=== PATIENT | female | born 1990 | race African-American/Black ===

== ENCOUNTER 2018-07-07 12:55 | Emergency (ER) | payer SELFPAY ==
[2018-07-07] MEDS ORDERED: Ketorolac Tromethamine 30 MG/ML VIAL ONE (13:36)
--- NOTE | 2018-07-07 13:40 | RAD ---
TWO VIEWS CHEST: Comparison: 08-17-13 History: Intermittent chest pain for two days. FINDINGS: Two views of the chest show normal sized cardiomediastinal silhouette. There is no evidence of consol idation, mass, or pleural effusion. The bones are unremarkable. IMPRESSION: No evidence of acute cardiopulmonary disease. POS: [facility]
== END 2018-07-07 14:07 | disposition home or self-care (01) ==
LOC: ERS 12:55
DX: J06.9 Acute upper respiratory infection, unspecified (principal); R07.81 Pleurodynia; F17.210 Nicotine dependence, cigarettes, uncomplicated
CPT/HCPCS: 71046; 96372; J1885

== ENCOUNTER 2019-05-11 18:16 | Emergency (ER) | payer SELFPAY | END 2019-05-11 20:26 | disposition left against medical advice (07) | LOC: ERS 18:16 | DX: Z53.21 Procedure and treatment not carried out due to patient leaving prior to being seen by health care provider (principal) ==

== ENCOUNTER 2019-07-12 19:03 | Inpatient (IN) | payer SELFPAY ==
[~2019-07-12 19:03] MED LIST: Iopamidol-370 76% 500 ML 1 ML ONE
[2019-07-12] MEDS ORDERED: Morphine 4 MG/ML VIAL ONE (19:55)
[2019-07-12] MEDS ORDERED: Ondansetron PF 4 MG/2 ML Vial ONE (19:55)
[2019-07-12 19:58] LABS: Hemoglobin 12.9 g/dL (12.0-16.0); Mean Corpuscular HGB CONC 33.8 g/dL (32.0-36.0); Mean Corpuscular Hemoglobin 31.6 pg (27.0-31.0); Mean Corpuscular Volume 93.3 fL (78.0-98.0); Platelet Count 240 thou/uL (130-400); RBC Distribution Width 12.2 % (11.5-14.5); Red Blood Cell (RBC) Count 4.09 mill/uL (4.20-5.40); White Blood Cell (WBC) Count 11.4 thou/uL (4.8-10.8)
[2019-07-12 20:02] LABS: BHCG - Serum Negative (NEGATIVE); Pregs Control Background? CLEAR/WHITE (CLR/WHITE); Pregs Control Bar Appear? YES (CONTROL BAR)
[2019-07-12 20:18] LABS: Bacteria/HPF 3+ HPF (None Seen); Bilirubin Negative (Negative); Blood, Urine Negative (Negative); Clarity Clear (Clear); Glucose, Urine (Dipstick) Normal (Negative); Leukocyte Negative Leu/uL (Negative); Nitrite 1+ (Negative); Protein, Urine (Dipstick) Negative (Neg-Trace); RBC/HPF 0-3 HPF (0-3); Urobilinogen Normal mg/dL (Less than 2)
[2019-07-12 20:21] LABS: Band 24 % (5-11); Lymphocytes 10 % (21-51); MDiff Complete? YES; Monocytes 9 % (0-10); Neutrophil 55 % (42-75); Platelet Morphology Comment Appears Adequate; Polychromasia SLIGHT = 2-3 cells (100X) (0-2/hpf); Reactive Lymphocytes 2 % (0-10)
[2019-07-12 20:24] LABS: ALT (SGPT) 7 U/L (8-55); AST (SGOT) 12 U/L (5-34); Albumin 3.9 g/dL (3.5-5.0); Alkaline Phosphatase 64 U/L (40-110); Anion Gap 12 mmol/L (10-20); BUN (Urea Nitrogen) 8 mg/dL (7.0-18.7); Bilirubin, Total 0.3 mg/dL (0.2-1.2); Calc. Creatinine Clearance 0 mL/min (70-130); Calcium 8.7 mg/dL (7.8-10.44); Carbon Dioxide 23 mmol/L (22-29); Chloride 101 mmol/L (98-107); Estimated GFR-MDRD Greater than 90; Globulin 3.5 g/dL (2.4-3.5); Glucose 137 mg/dL (70-105); Lipase 8 U/L (8-78); Protein, Total 7.4 g/dL (6.0-8.3); Sodium 133 mmol/L (136-145)
[2019-07-12] MEDS ORDERED: metroNIDAZOLE 500 MG/100 ML BAG ONE (21:16)
--- NOTE | 2019-07-12 21:16 | PDOC.FPRHP ---
- History of Present Illness Chief Complaint: abdominal pain History of Present Illness: 29yo AAF with no previous medical history presents for 2 days of sharp/stabbing abdominal pain both RLQ and LLQ but worse on the right, rated 10/10. Has been having 6-7 episodes per day of non-bloody diarrhea during that time as well. No recent antibiotics, recent travel, eating of abnormal food. Prior to 2 days ago she was at her usual state of health. Subjective fever yesterday. Decreased PO intake 2/2 pain and nausea. Tried Tylenol with no relief of sxs. Endorses RINALDI and body aches and generalized fatigue. No history of STDs, no dysuria, vaginal discharge, vaginal bleeding. No known sick contacts. ED Course: 1L NS, cipro, flaggyl, morphine, zofran - Allergies/Adverse Reactions Allergies Allergy/AdvReac Type Severity Reaction Status Date / Time No Known Allergies Allergy Unverified 07/12/19 21:20 - Home Medications Medication Instructions Recorded Confirmed Type No Known 07/12/19 07/12/19 History - History OB: , ectopic in 2012 requiring removal of one fallopian tube but unsure which, test negative today [employer]: denies STIs, LMP 07/04/19 regular menses PMH: none PSH: ectopic preg 2013 Med: none Allergy: NKDA Fm Hx: non-contributory Soc: social drinker, 1/2 ppd for 10 years, denies drugs. Lives in [place] - Review of Systems General: reports: fever/chills, weight/appetite/sleep changes (decreased), fatigue Eyes: denies: vision changes ENT: denies: nasal congestion, rhinorrhea Respiratory: denies: cough, congestion, shortness of breath Cardiovascular: denies: chest pain, palpitation Gastrointestinal: reports: nausea, vomiting, diarrhea, abdominal pain. denies: GI bleeding Genitourinary: denies: dysuria Skin: denies: rashes, itching Musculoskeletal: denies: pain, tenderness Neurological: reports: other (headache). denies: numbness - Vital signs BP: 118/90 HR: 85 RR: 18 Tmax: 99.8 Pox: 99on RA Wt: 57.1kg - Physical Exam Constitutional: awake, alert and oriented, well developed, other (NAD when resting, becomes tearful and in pain when moving.) HEENT: PERRLA, EOMI, other (dry MM) Neck: supple, trachea midline Heart: RRR, normal S1/S2, no murmurs/rubs/gallops, pulses present, no edema Lungs: CTAB, no respiratory distress, good air movement, no rales/rhonchi, no wheezing Abdomen: soft, bowel sounds present, other (RLQ TTP, rebound tenderness, positive psoas and obturator sign, positive toribio's sign. Pain worse in RLQ but also present in RUL and LLQ. No guarding.) Musculoskeletal: normal structure, normal tone Neurological: no focal deficit Skin: no rash/lesions Heme/Lymphatic: no unusual bruising or bleeding Psychiatric: normal mood and affect, good judgment and insight, intact recent and remote memory FMR H&P: Results - Labs Result Diagrams: 07/12/19 19:48 07/12/19 19:48 Lab results: WBC 11.4 thou/uL (4.8-10.8) H 07/12/19 19:48 Hgb 12.9 g/dL (12.0-16.0) 07/12/19 19:48 Hct 38.2 % (36.0-47.0) 07/12/19 19:48 MCV 93.3 fL (78.0-98.0) 07/12/19 19:48 Plt Count 240 thou/uL (130-400) 07/12/19 19:48 Band Neuts % (Manual) 24 % (5-11) H 07/12/19 19:48 Sodium 133 mmol/L (136-145) L 07/12/19 19:48 Potassium 3.0 mmol/L (3.5-5.1) L 07/12/19 19:48 Chloride 101 mmol/L (98-107) 07/12/19 19:48 Carbon Dioxide 23 mmol/L (22-29) 07/12/19 19:48 BUN 8 mg/dL (7.0-18.7) 07/12/19 19:48 Creatinine 0.83 mg/dL (0.6-1.1) 07/12/19 19:48 Glucose 137 mg/dL (70-105) H 07/12/19 19:48 Lactic Acid 1.7 mmol/L (0.5-2.2) 07/12/19 19:48 Calcium 8.7 mg/dL (7.8-10.44) 07/12/19 19:48 Total Bilirubin 0.3 mg/dL (0.2-1.2) 07/12/19 19:48 AST 12 U/L (5-34) 07/12/19 19:48 ALT 7 U/L (8-55) L 07/12/19 19:48 Alkaline Phosphatase 64 U/L (40-110) 07/12/19 19:48 Serum Total Protein 7.4 g/dL (6.0-8.3) 07/12/19 19:48 Albumin 3.9 g/dL (3.5-5.0) 07/12/19 19:48 Lipase 8 U/L (8-78) 07/12/19 19:48 Urine Ketones Negative mg/dL (Negative) 07/12/19 20:03 Urine Blood Negative (Negative) 07/12/19 20:03 Urine Nitrite 1+ (Negative) A 07/12/19 20:03 Ur Leukocyte Esterase Negative Arlyn/uL (Negative) 07/12/19 20:03 Urine RBC 0-3 HPF (0-3) 07/12/19 20:03 Urine WBC 4-6 HPF (0-3) A 07/12/19 20:03 Ur Squamous Epith Cells 4-6 HPF (0-3) A 07/12/19 20:03 Urine Bacteria 3+ HPF (None Seen) A 07/12/19 20:03 - Radiology Interpretation CT scan - abdomen Status: report reviewed by me (Cecal wall thickening and inflammation. No sign of appendicitis. Small amount of free fluid in pelvis.) FMR H&P: A/P - Problem List (1) Colitis Current Visit: Yes Status: Acute Code(s): K52.9 - NONINFECTIVE GASTROENTERITIS AND COLITIS, UNSPECIFIED - Plan 29yo AAF with no significant past PMHx presents for abd pain found to have suspected ascending colitis. #Suspected ascending colitis - sxs for 2 days of diffuse abd pain, worse in RLQ, fever, nausea, vomiting, diarrhea, and decreased PO intake - concern for appendicitis - Called and spoke with Radiologist, overread of CT confirmed normal appendix with inflammatory of R colon - Consult Dr. Thakur, Gen surg, rec IVF, NPO, and Zosyn, appre recs - Given flagy and cipro in ED, will d/c and start zosyn - WBC 11.4 with 24% bands. Will order procal. - UA dirty catch with 3+ bacteria, 4-6 WBC, 4-6 squamous, no sxs, zosyn will cover, await UCx - BCx pending - No previous STD, no current sxs, will order GC/C. LMP 2/, urine negative. H/o ectopic but low suspicion at this time of B[employer] [place]ILLER origin - flu negative, Lipase , Lacid acid 1.7 - morphine 4mg q4h prn pain, zofran prn n/v - diarrhea x3 day, >5 per day. Will order stool studies including cx, lactoferrin, and C. diff #Hypokalemia - 3.0, will replace, check Mg, and monitor Code: Full IVF: LR @125cc/hr Diet: NPO GI PPx: Pepcid VTE ppx: SCDs Disposition/LOS: Admit to surg floor for ascending colitis. Workup pending. Anticipate hospitalization >48hrs. FMR H&P: Upper Level - Plan Date/Time: 07/12/192115 PCP: CC HPI: This is a 29 yo F coming in with 2 days of worsening abdominal pain. She states she has had fever up to 102. She is having nausea and not tolerating PO intake. Pain is sharp, 10/10, comes and goes, worse with movt, both R and L lower quadrant. She does have a history ectopic . Denies vaginal bleeding or discharge. She has had 6-7 episodes of diarrhea per day, denies foods out of the usual as of late. REVIEW OF SYSTEMS: Gen: see hpi Neuro: denies headache Eyes: no visual changes ENT: no hearing changes, no sore throat, no congestion Resp: denies cough, SOB Card: denies CP, palpitations GI: see hpi Skin: no rash, no erythema PHYSICAL EXAMINATION: General: NAD, alert and oriented x3 HEENT: PERRLA, EOMI, normal sclera, oropharynx without erythema or exudate Neck: Supple. Full ROM. Heart/Cardiovascular System: RRR, Cap refill < 3 seconds, no rub, no murmur Lungs/Respiratory System: CTA-B, no resp distress Abdomen/Gastro-Intestinal System: soft, not distended, psoas/obturator sign positive, bowel sounds positive Extremities: Warm extremities. No cyanosis or edema Neuro: No gross deficits appreciated. CN 2-12 grossly intact Psychiatry: Awake, Alert and cooperative with exam Skin: no rashes, ulcers Musculoskeletal: Full ROM A/P: # Ascending Colitis, consider appendicitis - Reviewed CT with radiology, no sign of appendicitis on CT - Consulted gen surg, appreciate recs - Zosyn, pain/nausea control, fluids # Asymptomatic UTI - Ucx Fluids: LR 125ml/hr Code status: full PPx: scd Dispo: inpatient
[2019-07-12] MEDS ORDERED: Potassium Chloride 20 MEQ TAB ONE (21:34)
[2019-07-12 22:11] VITALS: BMI 24.6
[2019-07-12] MEDS ORDERED: Ondansetron ODT 4 MG TAB SL PRN (22:38)
[2019-07-12] MEDS ORDERED: Ondansetron PF 4 MG/2 ML Vial IVP PRN (22:38)
--- NOTE | 2019-07-12 22:43 | CT ---
CT ABDOMEN AND PELVIS WITH IV CONTRAST: History: Right lower quadrant abdominal pain. FINDINGS: Comparison is made with exam of 06-03-2013. The liver, spleen, pancreas, adrenal glands and kidneys are normal. No gallstones are seen. No free air or lymphadenopathy is seen. There is a small amount of free fluid in the pelvis. The small bowel loops are not abnormally dilated. A normal appearing appendix is present. There is t hickening of the wall of the cecum. IMPRESSION: 1. Thickening of the wall of the cecum is nonspecific and may be due to inflammation, infection, infi ltrative disorders, neoplasia. 2. No evidence of appendicitis. 3. Small amount of free fluid in the pelvis. POS: [facility]
[2019-07-12] MEDS ORDERED: Sodium Chloride 0.9% 1,000 ML IV SCH (22:45)
[2019-07-13] MEDS ORDERED: Ondansetron PF 4 MG/2 ML Vial IVP PRN (00:11)
[2019-07-13] MEDS ORDERED: Ondansetron ODT 4 MG TAB PO PRN (00:11)
[2019-07-13] MEDS: Morphine 4 MG/ML VIAL SLOW IVP PRN ×6 (00:28→20:21)
[2019-07-13] MEDS: Lactated Ringer's 1,000 ML IV SCH ×5 (00:32→20:20)
[2019-07-13] MEDS: Acetaminophen 325 MG TAB PO PRN ×5 (00:45→20:32)
[2019-07-13] MEDS: Piperacillin/Tazobactam 3.375 GM in Sodium Chloride 0.9% 100 ML IVPB SCH ×4 (02:35→20:21)
[2019-07-13 05:31] LABS: Anion Gap 12 mmol/L (10-20); BUN (Urea Nitrogen) 5 mg/dL (7.0-18.7); Calc. Creatinine Clearance 96 mL/min (70-130); Calcium 8.3 mg/dL (7.8-10.44); Carbon Dioxide 21 mmol/L (22-29); Chloride 105 mmol/L (98-107); Estimated GFR-MDRD Greater than 90; Glucose 103 mg/dL (70-105); Potassium 3.5 mmol/L (3.5-5.1); Sodium 134 mmol/L (136-145)
[2019-07-13] MEDS ORDERED: metroNIDAZOLE 500 MG in Premix Bag 1 BAG IVPB SCH (06:00)
[2019-07-13 06:50] LABS: Hemoglobin 12.1 g/dL (12.0-16.0); Mean Corpuscular HGB CONC 34.5 g/dL (32.0-36.0); Mean Corpuscular Hemoglobin 32.3 pg (27.0-31.0); Mean Corpuscular Volume 93.6 fL (78.0-98.0); Mean Platelet Volume 8.6 fL (7.4-10.4); Platelet Count 213 thou/uL (130-400); RBC Distribution Width 12.1 % (11.5-14.5); Red Blood Cell (RBC) Count 3.75 mill/uL (4.20-5.40); White Blood Cell (WBC) Count 9.7 thou/uL (4.8-10.8)
--- NOTE | 2019-07-13 07:25 | PDOC.FM ---
- Subjective Subjective: pt in bed with a lot of pain in her abdomen, she reports nausea and fever as well - Objective Vital Signs & Weight: Vital Signs (12 hours) Temp Pulse Resp BP BP Pulse Ox 07/13/19 04:18 103.1 F H 80 16 109/69 94 L 07/13/19 00:34 100.5 F H 91 18 111/57 L 95 07/12/19 21:55 98.7 F 70 16 124/76 97 Weight Weight 57.153 kg I&O: 07/12/19 07/13/19 07/14/19 06:59 06:59 06:59 Intake Total 1000 Balance 1000 Result Diagrams: 07/13/19 04:58 07/13/19 04:58 Phys Exam - Physical Examination Constitutional: NAD HEENT: moist MMs Neck: no JVD Respiratory: clear to auscultation bilateral Cardiovascular: no significant murmur ttp throughout Musculoskeletal: pulses present Neurological: moves all 4 limbs Psychiatric: normal affect Dx/Plan (1) Colitis Code(s): K52.9 - NONINFECTIVE GASTROENTERITIS AND COLITIS, UNSPECIFIED Status : Acute - Plan Plan: Ascending Colitis, likely infectious - revealed on CT scan, wbc elevation and fever - Consulted gen surg, appreciate recs - consult GI, appreciate recs - work up for inflammatory processes - Zosyn, pain/nausea control, fluids Asymptomatic UTI - Ucx Code status: full Dispo: further eval and treatment today Addendum - Attending - Attending Attestation Date/Time: 07/13/19 9747 I personally evaluated the patient and discussed the management with Dr. Webb I agree with the History, Examination, Assessment and Plan documented above with any addition or exceptions noted below.Will consult GI consider IBD continue antibiotics hydration expectant management.
--- NOTE | 2019-07-13 07:37 | PDOC.EVN ---
Event Note - Event Note Event Note: Full dictation to follow A/P: Colitis -cont IVF, antibiotics -await stool studies -I do not think she will need operative intervention -I recommend GI consult
[2019-07-13 08:16] LABS: Band 20 % (5-11); Lymphocytes 17 % (21-51); MDiff Complete? YES; Monocytes 6 % (0-10); Neutrophil 57 % (42-75); Platelet Morphology Comment Appears Adequate; Polychromasia SLIGHT = 2-3 cells (100X) (0-2/hpf); Vacuoles SLIGHT
[2019-07-13] MEDS ORDERED: Famotidine/PF 20 mg/2ml Vial SLOW IVP SCH (09:00)
[2019-07-13] MEDS ORDERED: Famotidine 20 MG TAB PO SCH (09:00)
[2019-07-13] MEDS: Ketorolac Tromethamine 30 MG/ML VIAL IVP PRN ×2 (10:19→20:21)
[2019-07-13] MEDS ORDERED: Sodium Chloride 0.9% 1,000 ML IV SCH (11:45)
--- NOTE | 2019-07-13 16:14 | CON ---
DATE OF CONSULTATION: 07/13/2019 CHIEF COMPLAINT: Right-sided abdominal pain. HISTORY OF PRESENT ILLNESS: This is a 29-year-old female with a 1-week history of diarrhea. In the last few days it has been associated with right-sided abdominal pain, worse overnight, seen in the emergency department, where a CT scan reveals ascending colitis. The appendix is visible and normal. She has been febrile. She was tachycardic on arrival but her tachycardia improved with IV fluids. She has been placed on broad-spectrum antibiotics. I have been consulted for whether this represents a surgical issue. The patient specifically denies any history of inflammatory bowel disease, previous colitis. No history of chronic diarrhea PAST MEDICAL HISTORY: She denies. PAST SURGICAL HISTORY: She denies. MEDICATIONS: Medicines taken daily none. ALLERGIES: NO KNOWN DRUG ALLERGIES. SOCIAL HISTORY: No smoking, alcohol, or other drugs. REVIEW OF SYSTEMS: Ten-system review of systems is otherwise negative unless described above. PHYSICAL EXAMINATION: VITAL SIGNS: Blood pressure is 99/61, pulse 82, respirations 18. She is afebrile HEENT: Sclerae are anicteric. Oropharynx clear. NECK: No lymphadenopathy. CHEST: Clear. HEART: Regular rate. ABDOMEN: Soft, tender in the right abdomen with localized guarding. No rebound tenderness. No ischemia or edema to extremities. LABORATORY DATA: White blood cell count is 9, hemoglobin 12, platelet count is 213. She has 20 bands. Sodium 134, potassium 3.[address] scan as above. Stool studies are negative for Campylobacter or E coli. Her fecal lactoferrin is positive. Strep and influenza titers were all negative. ASSESSMENT: Ascending colitis with no previous history. PLAN: Recommend supportive care, IV fluids, broad-spectrum antibiotics. N.p.o. for now. She should improve. I doubt she will need any operative intervention. I would recommend a GI consult if her symptoms do not improve. I discussed with Dr. Rinaldi . Job ID: [id number]
[2019-07-14] MEDS: Acetaminophen 325 MG TAB PO PRN ×2 (00:29→11:16)
[2019-07-14] MEDS: Morphine 4 MG/ML VIAL SLOW IVP PRN ×7 (00:30→23:19)
--- NOTE | 2019-07-14 00:31 | CON ---
DATE OF CONSULTATION: 07/13/2019 REASON FOR CONSULTATION: Abnormal GI imaging, right lower quadrant abdominal pain. CONSULTING PROVIDER: Matt Webb DO HISTORY OF PRESENT ILLNESS: The patient is a 29-year-old female with past medical history of chronic constipation, presenting with complaints of increased right lower quadrant abdominal pain. She states that she was in her usual state of health until approximately 2 days ago when she had acute onset of weakness, aching, and nausea. Shortly after the onset of these above symptoms, she also had onset of increased right lower quadrant abdominal pain characterized as a sharp/stabbing type sensation, has been intermittent, would radiate to the right upper quadrant and reaches a severity of 10/10. This pain is worse with pressure to the region and increased physical activity/movement; better only with sleep (pain medications during this hospitalization have not relieved her pain). With the increase in this right lower quadrant abdominal pain, it prompted her to seek healthcare assistance at the [facility] ER and while in the ER, had a CT scan that showed increased inflammation of the cecum and was ultimately admitted to the hospital for further evaluation. Upon further questioning the patient, she states that prior to the onset of her pain, she would have approximately one bowel movement every 1 to 2 weeks that were solid in consistency but did require increased straining in order to facilitate defecation. She denies any use of NSAIDs, but would instead take Tylenol only for pain. Otherwise, she denies any vomiting, hematemesis, melena, hematochezia, dysphagia, odynophagia, or weight loss. Of note, during the course of this hospitalization, she has had more diarrhea rather than constipation. REVIEW OF SYSTEMS: A 10-category review of systems was obtained with all responses negative except for the pertinent positives as listed in HPI. PAST MEDICAL HISTORY: Chronic constipation. PAST SURGICAL HISTORY: None. FAMILY HISTORY: Denies any GI malignancies or IBD. SOCIAL HISTORY: Denies any alcohol, tobacco, or illicit drug use. OUTPATIENT MEDICATIONS: None. ALLERGIES: NO KNOWN DRUG ALLERGIES. PHYSICAL EXAMINATION: VITAL SIGNS: Temperature 103.1, pulse 100, blood pressure 106/66, respiratory rate 16, saturating 97% on room air. GENERAL: The patient was lying in bed, in no acute distress. Alert and oriented x4. HEENT: Normocephalic, atraumatic. NECK: Supple. No JVD or scleral icterus noted. CARDIOVASCULAR: Tachycardic rate but regular rhythm with no discernible murmurs, gallops, or rubs. RESPIRATORY: Clear to auscultation bilaterally with no discernible wheezes or rales. ABDOMEN: Normoactive bowel sounds. Soft, nondistended. Significant tenderness to palpation with both light and deep palpation in the right upper quadrant and right lower quadrant. EXTREMITIES: No cyanosis, clubbing, or edema. LABORATORY DATA: CBC with white blood cell count of 9.7, hemoglobin 12.1, hematocrit 35.1, platelets 213. Chemistry with sodium of 134, potassium 3.5, chloride 105, CO2 of 21, BUN 5, creatinine 0.79, glucose 103, AST 12, ALT 7, alkaline phosphatase 64, total bilirubin 0.3, albumin 3.9, lipase 8. CRP 14.4. Infectious stool studies have been negative for C diff, Campylobacter E coli, or flu. IMAGING DATA: CT of the abdomen and pelvis was obtained on July 12, which showed no free air or lymphadenopathy. A small amount of free fluid was seen in the pelvis in addition to thickening of the wall of the cecum with no further involvement with rest of the colon. ASSESSMENT AND PLAN: The patient is a 29-year-old female with past medical history of constipation, presenting with complaints of right lower quadrant abdominal pain and abnormal imaging showing inflammation of the cecum. Right lower quadrant abdominal pain/cecitis. The patient is presenting with fairly acute onset of worsening generalized myalgias, nausea, and weakness. This started approximately 2 days ago. This was subsequently followed by increased right lower quadrant abdominal pain characterized as a sharp/stabbing type sensation, reaching a severity of 10/10. On admission to the hospital, she was noted to have an elevated white blood cell count with a significant bandemia concerning for the presence of infection. She was also noted to be tachycardic and hypotensive also concerning for systemic inflammatory response syndrome/sepsis. She was subsequently placed on antibiotic therapy with infectious stool studies obtained after introduction of antibiotics. Currently, she does have continued abdominal pain in the right lower quadrant that is not currently being alleviated with her current pain regimen. At this time, based on her labs, history and imaging, it seems more consistent with an infectious etiology, especially given her bandemia and fever during the course of this hospitalization. However, it seems that she was given antibiotics prior to obtaining any stool samples, so narrowing the spectrum of her antibiotics or finding a causative organism may be unlikely. She does have a stool culture that is still pending and I would definitely follow up for possible speciation of a possible infectious etiology given the increased probability of infection. Colonoscopic evaluation would increase her risk of perforation and therefore is not indicated at this time. RECOMMENDATIONS: 1. Would continue with more conservative management with IV fluids and pain control per primary team. 2. Agree with current antibiotic therapy for probable infective organism, which is indicated in the patient with tachycardia and hypotension. 3. Would continue to monitor the patient's renal function for possible hemolytic uremia syndrome associated with the use of antibiotics for treatment of infectious diarrhea. 4. Followup on stool culture with narrowing antibiotic spectrum if a causative organism is found. 5. If the patient does not have any significant improvement over the next 24 to 48 hours, I would then consider colonoscopy for further evaluation. We will continue to follow. Please call with any questions. Job ID: [id number]
[2019-07-14] MEDS: Piperacillin/Tazobactam 3.375 GM in Sodium Chloride 0.9% 100 ML IVPB SCH ×2 (02:45→07:36)
[2019-07-14 06:01] LABS: Anion Gap 10 mmol/L (10-20); BUN (Urea Nitrogen) 5 mg/dL (7.0-18.7); Calc. Creatinine Clearance 92 mL/min (70-130); Calcium 7.9 mg/dL (7.8-10.44); Carbon Dioxide 23 mmol/L (22-29); Chloride 104 mmol/L (98-107); Estimated GFR-MDRD Greater than 90; Glucose 104 mg/dL (70-105); Sodium 134 mmol/L (136-145)
[2019-07-14 06:12] LABS: Band 53 % (5-11); Lymphocytes 6 % (21-51); MDiff Complete? YES; Mean Corpuscular HGB CONC 33.2 g/dL (32.0-36.0); Mean Corpuscular Hemoglobin 30.9 pg (27.0-31.0); Mean Corpuscular Volume 93.2 fL (78.0-98.0); Mean Platelet Volume 8.4 fL (7.4-10.4); Monocytes 15 % (0-10); Neutrophil 25 % (42-75); Platelet Count 184 thou/uL (130-400); Reactive Lymphocytes 1 % (0-10); Red Blood Cell (RBC) Count 3.55 mill/uL (4.20-5.40); Toxic Granulation SLIGHT; Vacuoles SLIGHT; White Blood Cell (WBC) Count 12.2 thou/uL (4.8-10.8)
[2019-07-14] MEDS ORDERED: Potassium Chloride 40 MEQ in Lactated Ringer's 1,000 ML IV SCH (07:30)
[2019-07-14] MEDS: Lactated Ringer's 1,000 ML IV SCH ×3 (08:32→15:07)
--- NOTE | 2019-07-14 09:04 | PDOC.FM ---
Addendum entered and electronically signed by Matt Webb DO 07/14/19 09:10: procal, increased wbc count, fevers continue. broaden abx coverage. Original Note: - Subjective Subjective: pt resting in bed, in pain, severe abdominal pain, fever. denies vomiting - Objective Vital Signs & Weight: Vital Signs (12 hours) Temp Pulse Resp BP Pulse Ox 07/14/19 07:37 99.9 F H 97 18 115/73 95 07/14/19 04:11 103.3 F H 106 H 16 98/60 94 L 07/14/19 02:45 103.0 F H 07/14/19 00:16 102.9 F H 113 H 18 117/72 96 07/13/19 22:02 100.1 F H Weight Weight 57.153 kg I&O: 07/13/19 07/14/19 07/15/19 06:59 06:59 06:59 Intake Total 1000 3725 Output Total 900 Balance 1000 2825 Result Diagrams: 07/14/19 05:24 07/14/19 05:24 Phys Exam - Physical Examination Constitutional: NAD HEENT: moist MMs Neck: supple Respiratory: clear to auscultation bilateral Cardiovascular: no significant murmur Gastrointestinal: soft ttp Musculoskeletal: no edema Neurological: moves all 4 limbs Psychiatric: normal affect Skin: no rash Dx/Plan (1) Colitis Code(s): K52.9 - NONINFECTIVE GASTROENTERITIS AND COLITIS, UNSPECIFIED Status : Acute - Plan Plan: Ascending Colitis, likely infectious - revealed on CT scan, wbc elevation and fever - Consulted gen surg, appreciate recs - consult GI, appreciate recs - work up for inflammatory processes - Zosyn, pain/nausea control, fluids Asymptomatic UTI - Ucx Code status: full Dispo: further eval and treatment today Addendum - Attending - Attending Attestation Date/Time: 07/14/19 1041 I personally evaluated the patient and discussed the management with Dr. Webb. I agree with the History, Examination, Assessment and Plan documented above with any addition or exceptions noted below. Patient here with CT confirmed ascending colitis and cecitis. She has been on Zosyn, but inflammatory markers have not had much improvement. We will broaden abx coverage somewhat to Rocephin and Flagyl for better coverage of enterics and anaerobes. GI on board. She continues to spike fevers, will attempt re- blood culture if occurs again. So far, cultures have been negative. This could suggest a viral cause of her colitis, but her clinical picture does not necessarily fit with viral etiology. Overall continue current mgmt with abx, IV fluids, and bowel rest. Await further recs from GI. IF she suddenly worsens, would consider repeat CT. Adding Bentyl for pain control in addition to what she is already receiving.
[2019-07-14] MEDS: cefTRIAXone\\ROCEPHIN 1 GM in Sodium Chloride 0.9% 100 ML IVPB SCH (10:21)
[2019-07-14] MEDS: Dicyclomine 10 MG CAP PO SCH ×3 (12:24→20:00)
[2019-07-14] MEDS: metroNIDAZOLE 500 MG in Premix Bag 1 BAG IVPB SCH ×3 (12:24→23:20)
[2019-07-14] MEDS ORDERED: Iopamidol-370 76% 500 ML 1 ML ONE (14:47)
[2019-07-14] MEDS ORDERED: Iopamidol 370 76% 50 ML VIAL FS ONE (14:47)
--- NOTE | 2019-07-14 20:25 | PRG ---
DATE OF SERVICE: 07/14/2019 REASON FOR CONSULTATION: Right lower quadrant abdominal pain. SUBJECTIVE: With transferring the patient to ciprofloxacin and metronidazole earlier today, she states that she has had some improvement in her abdominal pain given that it still is severe and exacerbated by the same factors, but is not as frequent as it was before. However, she also states that her abdomen in that area has become "rock hard." She attempted to drink fluids earlier today, but could not do so due to increased abdominal discomfort. Currently, she denies any nausea, vomiting, hematemesis, melena, or hematochezia. She did have fevers overnight in addition to the right lower quadrant pain as stated above. OBJECTIVE: VITAL SIGNS: Temperature 100.4, pulse 88, blood pressure 95/60, respiratory rate 18, saturating 95% on room air. GENERAL: The patient is lying in bed, in no acute distress. Alert and oriented x4. CARDIOVASCULAR: Tachycardic rate, but regular rhythm. RESPIRATORY: Clear to auscultation bilaterally. ABDOMEN: Hyperactive bowel sounds without any high-pitched sounds. Mild abdominal distention. Soft in the left abdomen, but more rigid in the right abdomen. Significant tenderness to palpation in the right mid and lower abdomen. EXTREMITIES: No cyanosis, clubbing, or edema. LABORATORY DATA: CBC with a white blood cell count of 12.2, hemoglobin 11, hematocrit 33, platelets 184. Chemistry with a sodium of 134, potassium 3, chloride 104, CO2 of 23, BUN 5, creatinine 0.82, glucose 104. IMAGING DATA: No current GI imaging is available for review. ASSESSMENT AND PLAN: The patient is a 29-year-old female with a past medical history of constipation, presenting with complaints of right lower quadrant abdominal pain and abnormal imaging showing inflammation of the cecum. Right lower quadrant abdominal pain/cecitis. The patient has initially presented with acute onset of myalgias, nausea, weakness, and increased right lower quadrant abdominal pain with an elevated white blood cell count concerning for the presence of infection. She was ultimately placed on Zosyn as part of appropriate antibiotic therapy and did not show any significant response over 24 hours. She was subsequently transferred to ciprofloxacin and Flagyl with some response today, but now experiencing a more rigid abdomen in the right hemiabdomen in addition to exquisite tenderness to palpation in that region as well. Based on the imaging study showing significant inflammation of the cecum in that region, it is concerning for the presence of either a microperforation or overt perforation, especially given that the patient continues to have fever, worse abdominal pain, and rigidity of the abdominal wall now concerning for peritonitis. At this point, a bacterial etiology is the more likely explanation with viral illness is less likely to cause this clinical picture. There are some parasites that could potentially generate this clinical picture, but stool studies have been negative thus far and given the acute onset of this parasitic infection is much less likely. RECOMMENDATIONS: 1. Would continue with conservative management with IV fluids and pain control per primary team. 2. Continue antibiotic therapy for probable infective organism. 3. I will order repeat CT scan of the abdomen/pelvis for evaluation of possible peritonitis and/or perforation given the exquisite tenderness and rigidity of the abdomen on physical exam today. 4. Continue to monitor the patient's renal function in light of antibiotic use for possible GI organism that could create HUS. 5. Follow up on the stool culture and narrow antibiotic spectrum as the causative organism is found. We will continue to follow. Please call with any questions. Job ID: [id number]
--- NOTE | 2019-07-14 22:46 | CT ---
CT ABDOMEN AND PELVIS WITH ORAL AND IV CONTRAST: 07/14/19 HISTORY: Increased abdominal pain. COMPARISON: 07/12/19. FINDINGS/IMPRESSION: Interval development of mild bibasilar infiltrates has occurred. There is worsening of thickening of the alas of the cecum and ascending colon. Appendix is normal. There has been interval development o f ileocecal lymphadenopathy. There is gallbladder wall thickening versus edema which is new since the last study. Small amount of free fluid in the pelvis is again seen. No pneumoperitoneum is identified. The small bowel loops are not abnormally dilated. Remainder of the exam is otherwise stable. POS: OFF
[2019-07-15] MEDS: Morphine 4 MG/ML VIAL SLOW IVP PRN ×6 (05:09→18:16)
[2019-07-15] MEDS: metroNIDAZOLE 500 MG in Premix Bag 1 BAG IVPB SCH ×3 (05:10→18:16)
[2019-07-15] MEDS: Lactated Ringer's 1,000 ML IV SCH ×2 (05:14→08:22)
[2019-07-15 06:11] LABS: Hemoglobin 10.6 g/dL (12.0-16.0); Mean Corpuscular HGB CONC 32.4 g/dL (32.0-36.0); Mean Corpuscular Hemoglobin 30.5 pg (27.0-31.0); Mean Platelet Volume 8.6 fL (7.4-10.4); Platelet Count 192 thou/uL (130-400); RBC Distribution Width 12.3 % (11.5-14.5); Red Blood Cell (RBC) Count 3.47 mill/uL (4.20-5.40); White Blood Cell (WBC) Count 10.7 thou/uL (4.8-10.8)
[2019-07-15 06:21] LABS: Anion Gap 10 mmol/L (10-20); BUN (Urea Nitrogen) Less than 4 mg/dL (7.0-18.7); Calc. Creatinine Clearance 118 mL/min (70-130); Calcium 8.5 mg/dL (7.8-10.44); Carbon Dioxide 24 mmol/L (22-29); Chloride 103 mmol/L (98-107); Estimated GFR-MDRD Greater than 90; Glucose 82 mg/dL (70-105); Potassium 3.2 mmol/L (3.5-5.1); Sodium 134 mmol/L (136-145)
--- NOTE | 2019-07-15 06:43 | PDOC.FM ---
- Subjective Subjective: pt resting comfortably in bed, reports pain is much improved, is hungry. denies nausea - Objective Vital Signs & Weight: Vital Signs (12 hours) Temp Pulse Resp BP Pulse Ox 07/15/19 03:36 98.9 F 76 16 99/63 98 07/14/19 23:21 101.3 F H 83 16 115/62 93 L 07/14/19 19:16 100.4 F H 88 18 95/60 95 Weight Weight 57.153 kg I&O: 07/13/19 07/14/19 07/15/19 06:59 06:59 06:59 Intake Total 1000 3725 4490 Output Total 900 Balance 1000 2825 4490 Result Diagrams: 07/15/19 05:27 07/15/19 05:27 Phys Exam - Physical Examination Constitutional: NAD HEENT: moist MMs Neck: supple Respiratory: clear to auscultation bilateral Cardiovascular: RRR, no significant murmur Gastrointestinal: soft tender RLQ Musculoskeletal: pulses present Neurological: moves all 4 limbs Psychiatric: normal affect Skin: no rash Dx/Plan (1) Colitis Code(s): K52.9 - NONINFECTIVE GASTROENTERITIS AND COLITIS, UNSPECIFIED Status : Acute - Plan Plan: Ascending Colitis, likely infectious - revealed on CT scan, wbc elevation and fever - Consulted gen surg, appreciate recs - consult GI, appreciate recs - rocephin/flagyl, pain/nausea control, fluids Asymptomatic UTI - Ucx Code status: full Dispo: repeat CT scan neg for perf, pt clinically improved, cont to monitor Addendum - Attending - Attending Attestation Date/Time: 07/15/19 1010 I personally evaluated the patient and discussed the management with Dr. Webb. I agree with the History, Examination, Assessment and Plan documented above with any addition or exceptions noted below. Patient with some worsening early yesterday, CT scan did not show any perforation or evidence of something causing peritonitis. After changing antibiotics, she has improved and is now saying she has minimal abdominal pain. Has some bloating, but is hungry. ADAT, continue IV abx, and fluids. GI on board. Continue pain control as needed.
[2019-07-15] MEDS ORDERED: Potassium Chloride 40 MEQ in Lactated Ringer's 1,000 ML IV SCH (06:45)
[2019-07-15] MEDS: Dicyclomine 10 MG CAP PO SCH ×4 (08:17→21:00)
[2019-07-15 08:22] LABS: Band 15 % (5-11); Lymphocytes 13 % (21-51); MDiff Complete? YES; Monocytes 11 % (0-10); Neutrophil 60 % (42-75); Platelet Morphology Comment Appears Adequate; Polychromasia SLIGHT = 2-3 cells (100X) (0-2/hpf); Reactive Lymphocytes 1 % (0-10)
--- NOTE | 2019-07-15 09:12 | PDOC.GSPN ---
Surgery Progress Note: Subj - Subjective Patient reports: diarrhea (2x loose watery stools since yesterday evening. Denies blood or mucus in stools. No foul odor.), still having pain (10/10 pain, occurring at same intensity but less frequently than she experienced before. Localized to RLQ and radiating to RUQ.) Narrative: Pt is on day 4 of hospitalization for colitis with ddx of infectious vs non- infectious origin. She continues to experience severe RLQ pain and loose stools several times per day. She also has had fever and nausea, though she says that the nausea has been better this morning. She reports not feeling hungry at this time. Currently she is on broad spectrum antibiotics and is receiving IV replacement fluids. Surgery Progress Note: Obj - Vital signs Vital signs: Vital Signs - Most Recent Temp Pulse Resp BP Pulse Ox 98.9 F 81 16 106/69 94 L 07/15/19 07:55 07/15/19 07:55 07/15/19 07:55 07/15/19 07:55 07/15/19 07:58 - Physical Exam General: moderate pain Cardiovascular: regular rate and rhythm Respiratory: clear to auscultation, normal expansion, normal respiratory effort , breath sounds present Abdomen: distended, tender, other (Hyperactive Bowel Sounds) Surgery Progress Note: Results - Labs Result Diagrams: 07/15/19 05:27 07/15/19 05:27 Lab results: Laboratory Results - last 24 hr 07/15/19 07/15/19 07/15/19 05:27 05:27 05:27 WBC 10.7 RBC 3.47 L Hgb 10.6 L Hct 32.6 L MCV 94.0 MCH 30.5 MCHC 32.4 RDW 12.3 Plt Count 192 MPV 8.6 Neutrophils % (Manual) 60 Band Neuts % (Manual) 15 H Lymphocytes % (Manual) 13 L Reactive Lymphs % 1 Monocytes % (Manual) 11 H Neutrophils # Not Reportable Lymphocytes # Not Reportable Plt Morphology Comment Appears Adequate Polychromasia SLIGHT = 2-3 cells Sodium 134 L Potassium 3.2 L Chloride 103 Carbon Dioxide 24 Anion Gap 10 BUN Less than 4 L Creatinine 0.64 Estimated GFR (MDRD) Greater than 90 Glucose 82 Calcium 8.5 Procalcitonin 2.20 - Radiology Interpretation CT scan - abdomen Status: report reviewed by me (Cecal wall thickening and inflammation. No sign of appendicitis. Small amount of free fluid in pelvis.) Surgery Progress Note: A/P - Problem (1) Colitis Current Visit: Yes Code(s): K52.9 - NONINFECTIVE GASTROENTERITIS AND COLITIS, UNSPECIFIED Status: Acute - Plan Plan: Pt is currently stable and not tachy or febrile. She is still having acute right sided abdominal pain and many loose stools. Current CT scan is consistent with colitis. No pneumotosis seen. Plan- -Continue broad spectrum antibiotic treatment -continue fever and nausea management medications -OOB/Ambulate as tolerated -Continue bowel rest and supportive management -Patient does not appear to need surgery at this time, but will be closely monitored Addendum - Physician - Physician Attestation Date/Time: 07/15/19 7156 I personally performed or re-performed the physical examination and medical decision making. I have verified all student documentation or findings, including history, physical exam and/or medical decision making. Dr Rinaldi plans colonoscope tomorrow. Will follow
[2019-07-15] MEDS: cefTRIAXone\\ROCEPHIN 1 GM in Sodium Chloride 0.9% 100 ML IVPB SCH (10:03)
[2019-07-15] MEDS ORDERED: GoLYTELY 4,000 ml Bottle PO SCH (12:30)
--- NOTE | 2019-07-15 12:58 | PRG ---
DATE OF SERVICE: 07/15/2019 REASON FOR CONSULTATION: Right lower quadrant abdominal pain, imaging showing cecitis. SUBJECTIVE: Over the last 24 hours, the patient continues to have significant right lower quadrant abdominal pain characterized as a sharp stabbing type sensation reaching a severity of 10/10, especially with physical movement and pressure to the region. She was transferred to ciprofloxacin and metronidazole within the last 24 to 36 hours and has not shown any significant improvement in her abdominal pain except with the administration of dicyclomine. She continues to have "my belly is hard" in the region of the right abdomen. She has attempted to consume fluids, but could only minimally do so due to increased abdominal discomfort. Currently, she denies any nausea, vomiting, hematemesis, melena, or hematochezia. OBJECTIVE: VITAL SIGNS: Temperature 98.6, pulse 80, blood pressure 98/65, respiratory rate 14, saturating 97% on room air. GENERAL: The patient was lying in bed, in no acute distress. Alert and oriented x4. CARDIOVASCULAR: Regular rate and rhythm. RESPIRATORY: Clear to auscultation bilaterally. ABDOMEN: Normoactive bowel sounds, soft in the left dave-abdomen, but more rigid in the right dave-abdomen, exquisite tenderness to palpation in the right lower quadrant with less pain in the right upper quadrant. EXTREMITIES: No cyanosis, clubbing, or edema. LABORATORY DATA: CBC with white blood cell count of 10.7, hemoglobin 10.6, hematocrit 32.6, and platelets 192. Chemistry with a sodium of 134, potassium 3.2, chloride 103, CO2 of 24, BUN less than 4, creatinine 0.64, glucose 82. IMAGING DATA: CT of the abdomen and pelvis was obtained on July 14, 2019, and showed interval development of mild bibasilar infiltrates as well as thickening of the alas of the cecum and ascending colon and interval development of ileocecal lymphadenopathy. Gallbladder wall was also thickened versus edema, which was new since last CT scan. Otherwise, there was no significant changes. ASSESSMENT AND PLAN: The patient is a 29-year-old female with past medical history of chronic constipation, presenting with complaints of right lower quadrant abdominal pain and abnormal imaging showing inflammation of the right colon. Right lower quadrant abdominal pain/abnormal GI imaging, the patient initially presented with myalgias, nausea, weakness, and increased right lower quadrant abdominal pain with an elevated white blood cell count concerning for infection. She was initially placed on Zosyn as part of appropriate antibiotic therapy and did not show any significant response over 24 hours. She was changed to ciprofloxacin and Flagyl given the higher likelihood of an infectious process with no significant change in her current clinical status. She has had a modicum of pain relief with the administration of dicyclomine as needed, but otherwise continues to have fever in addition to significant abdominal pain. Given the rigidity of her abdomen yesterday, a CT scan was obtained on July 14, 2019, which did not show any evidence of perforation. At this time a bacterial etiology is more likely, but given the lack of response to antibiotic administration and inflammatory type process is starting to come up on the differential including inflammatory bowel disease (more specifically Crohn disease). Given her negative stool studies thus far and lack of response to antibiotic therapy, I think an intraluminal evaluation is now indicated. RECOMMENDATIONS: 1. Would continue with conservative management with IV fluids and pain control per primary team. 2. Continue antibiotic therapy for possible infected organism. 3. Would place the patient on a clear liquid diet today and n.p.o. at midnight in anticipation for colonoscopy tomorrow. 4. We will follow up on stool culture for possible causative pathogen and narrowing spectrum of antibiotics. 5. Continue to trend renal function daily in light of possible infection and antibiotic use with increased risk of HUS. We will continue to follow. Please call with any questions. Job ID: [id number]
[2019-07-15 14:54] LABS: ANA Symphony (Qualitative) Negative (Negative); ANA Symphony (Quantitative) 0.3 Ratio (< 0.7 Negative); dsDNA IgG Antibody 0.7 IU/mL (<10 Negative)
[2019-07-15] MEDS: Acetaminophen 325 MG TAB PO PRN (20:59)
[2019-07-15 23:08] LABS: Chlam.trachomatis by PCR,Urine Not Detected (NotDetected)
[2019-07-16] MEDS: metroNIDAZOLE 500 MG in Premix Bag 1 BAG IVPB SCH ×3 (00:47→13:00)
[2019-07-16] MEDS: Morphine 4 MG/ML VIAL SLOW IVP PRN (00:48)
[2019-07-16 05:21] LABS: #Basophils 0.1 thou/uL (0.0-0.2); #Eosinphils 0.2 thou/uL (0.0-0.7); #Lymphocytes 1.7 thou/uL (1.20-3.40); #Monocytes 0.5 thou/uL (0.11-0.59); #Neutrophils 2.4 thou/uL (1.40-6.50); %Basophils 1.4 % (0.0-1.0); %Eosinophils 3.4 % (0.0-10.0); %Lymphocytes 35.4 % (21.0-51.0); %Monocytes 9.6 % (0.0-10.0); %Neutrophils 50.2 % (42.0-75.0); Hemoglobin 9.9 g/dL (12.0-16.0); Mean Corpuscular HGB CONC 33.2 g/dL (32.0-36.0); Mean Corpuscular Hemoglobin 31.3 pg (27.0-31.0); Mean Corpuscular Volume 94.3 fL (78.0-98.0); Mean Platelet Volume 8.5 fL (7.4-10.4); Platelet Count 170 thou/uL (130-400); RBC Distribution Width 12.3 % (11.5-14.5); Red Blood Cell (RBC) Count 3.17 mill/uL (4.20-5.40); White Blood Cell (WBC) Count 4.7 thou/uL (4.8-10.8)
[2019-07-16 05:42] LABS: Anion Gap 9 mmol/L (10-20); BUN (Urea Nitrogen) 6 mg/dL (7.0-18.7); Calc. Creatinine Clearance 120 mL/min (70-130); Calcium 8.2 mg/dL (7.8-10.44); Carbon Dioxide 26 mmol/L (22-29); Chloride 107 mmol/L (98-107); Estimated GFR-MDRD Greater than 90; Glucose 91 mg/dL (70-105); Potassium 3.7 mmol/L (3.5-5.1); Sodium 138 mmol/L (136-145)
[2019-07-16] MEDS ORDERED: Morphine 4 MG/ML VIAL SLOW IVP PRN (06:53)
--- NOTE | 2019-07-16 06:55 | PDOC.FM ---
- Subjective Subjective: pt resting comfortably in bed, pain significantly improved, afebrile - Objective Vital Signs & Weight: Vital Signs (12 hours) Temp Pulse Resp BP BP Pulse Ox 07/16/19 04:06 98.1 F 68 16 97/61 95 07/16/19 00:30 99/67 07/16/19 00:08 98.2 F 78 16 98 07/15/19 20:21 98.9 F 76 16 108/72 95 07/15/19 20:15 95 Weight Weight 57.153 kg I&O: 07/14/19 07/15/19 07/16/19 06:59 06:59 06:59 Intake Total 3725 4490 7280 Output Total 900 Balance 2825 4490 7280 Result Diagrams: 07/16/19 05:02 07/16/19 05:02 Phys Exam - Physical Examination Constitutional: NAD HEENT: moist MMs Neck: supple Gastrointestinal: soft, no distention, positive bowel sounds minimal tenderness Musculoskeletal: pulses present Neurological: moves all 4 limbs Psychiatric: normal affect Skin: no rash Dx/Plan (1) Colitis Code(s): K52.9 - NONINFECTIVE GASTROENTERITIS AND COLITIS, UNSPECIFIED Status : Acute - Plan Plan: Ascending Colitis, likely infectious - revealed on CT scan, wbc elevation and fever - Consulted gen surg, appreciate recs - consult GI, appreciate recs - rocephin/flagyl transition to oral abx today - DC after scope Asymptomatic UTI - Ucx Code status: full Dispo: colonoscopy today, further dispo pending results. DC today Addendum - Attending - Attending Attestation Date/Time: 07/16/19 1052 I personally evaluated the patient and discussed the management with Dr. Webb. I agree with the History, Examination, Assessment and Plan documented above with any addition or exceptions noted below. Patient doing much better this morning. She ran no fever overnight. Reports abdominal pain improved and she was able to tolerate PO yesterday without issue. She will be going for colonoscopy this morning to further evaluate the cause of her colitis. WBC and PCT downtrending which is very reassuring. Further mgmt per colonoscopy results.
[2019-07-16] MEDS: Dicyclomine 10 MG CAP PO SCH ×3 (08:28→16:33)
[2019-07-16] MEDS: cefTRIAXone\\ROCEPHIN 1 GM in Sodium Chloride 0.9% 100 ML IVPB SCH (09:40)
[2019-07-16] MEDS ORDERED: PROPOFOL 200 MG/20 ML VIAL ONE (09:50)
--- NOTE | 2019-07-16 15:18 | OP ---
DATE OF PROCEDURE: 07/16/2019 PROCEDURE PERFORMED: Colonoscopy with biopsy. PREPROCEDURE DIAGNOSES: Nausea, vomiting, diarrhea, and right-sided abdominal pain. CAT scan with advancing colitis in the right colon without improvement yesterday, so the colonoscopy was scheduled today. She states she feels better. POSTPROCEDURE DIAGNOSES: 1. Right-sided colitis with submucosal edema and hemorrhage. 2. Few areas of ulceration in the colon. 3. Stool culture came back positive from the with Salmonella. 4. I suspect that she probably had Salmonella-induced diarrhea and then dehydration with resultant right-sided ischemic colitis. RECOMMENDATIONS: 1. Await biopsies. 2. Advance diet. 3. Stop metronidazole and finish a 3-day course of fluoroquinolone to cover the Salmonella. 4. We will follow up on this and she can follow up with Dr. Rinaldi in 1 to 2 weeks in the office. She does want to be discharged home tomorrow. ANESTHESIA: TIVA. PROCEDURE IN DETAIL: After the patient was informed of the risks, benefits, and possible complications of endoscopy including perforation, bleeding, reaction to medication, and aspiration, informed consent was obtained. The patient was brought to the endoscopy suite, where she was sedated in gradual fashion. Once she was comfortable, a rectal examination was performed. The endoscope was advanced to the anal through the colon to the cecum. In the right colon, starting about the hepatic flexure extending down to the cecum, there was a submucosal edema and areas of submucosal hemorrhage. There was one area of ulceration. Biopsies were taken from all these areas. The terminal ileum was found to be normal. The appendiceal orifice was normal. The remainder of the colon was normal. The scope was removed. The patient tolerated the procedure well. There were no complications. Job ID: [id number]
[2019-07-16 16:10] VITALS: BP 101/66; TEMP 98.5
[2019-07-16] MEDS ORDERED: Ciprofloxacin 500 MG TAB PO SCH (20:00)
--- NOTE | 2019-07-19 08:28 | PQF ---
Kasandra Cutler RYAN ANDREW MD [id number] CLINICAL DOCUMENTATION CLARIFICATION FORM: POST DISCHARGE Addendum to original discharge summary date: ____ Late entry note date: __ DATE: 07/19/2019 ATTN: LEAH ODONNELL MD Please exercise your independent, professional judgment in responding to the clarification form. Clinical indicators are provided on the bottom of this form for your review Please check appropriate box(s): [ ] Colitis: Type: [ ] Infectious Colitis [ ] Ischemic Colitis [ ] Other diagnosis [ X ] Unable to determine (THIS WAS A FAMILY PRACTICE PATIENT, NOT MINE) For continuity of documentation, please document condition throughout progress notes and discharge summary. Thank You. CLINICAL INDICATORS - SIGNS / SYMPTOMS / LABS - Ascending colitis, likely infectious- Family medicine progress note, 07/16, Fran Morton MD - At the time a bacterial etiology is more likely, but given the lack of response to antibiotic inflammatory type process is starting to come up on the differential including inflammatory bowel disease- Progress note 07/15, Nimco Beavers MD - Right sided colitis with submucosal edema and hemorrhage- OP report, 07/16, Cindy Cuba MD - I suspect that she probably had salmonella-induced diarrhea and then dehydration with resultant right sided ischemic colitis- OP report, 07/16, Cindy Cuba MD RISK FACTORS - Chronic constipation- Consultation report, 07/13, Nimco Cabrales MD TREATMENT: -Colonoscopy- OP report, 07/16, Cindy Cuba MD - Rocephin.IV- MAR, 07/14, (This form is maintained as a part of the permanent medical record) 2014 [employer]. All Rights Reserved [facility]
--- NOTE | 2019-07-20 22:38 | PQF ---
Kasandra Cutler MILIND KEY [id number] CLINICAL DOCUMENTATION CLARIFICATION FORM: POST DISCHARGE Addendum to original discharge summary date: ____ Late entry note date: __ DATE: 07/20/2019 ATTN:MILIND KEY Please exercise your independent, professional judgment in responding to the clarification form. Clinical indicators are provided on the bottom of this form for your review Please check appropriate box(s): [ ] Colitis: Type: [ ] Ulcerative Colitis [ ] Infectious Colitis [ X ] Other diagnosis - Infectious colitis with salmonella pathogen The patient was initially admitted with acute onset diarrhea and RLQ abdominal pain with imaging consistent with colitis, presumed to be infectious due to the acute onset of pain and diarrhea. She initially did not respond well to antibiotic therapy, so colonoscopy was performed for further evaluation. The colonoscopy showed ulceration and purulence of the right colon consistent with infectious origin. Review of stool culture on the day of colonoscopy was positive for Salmonella. At this time, the likely origin of her RLQ abdominal pain and colitis on imaging, was acute infectious salmonella colitis. [ ] Unable to determine For continuity of documentation, please document condition throughout progress notes and discharge summary. Thank You. CLINICAL INDICATORS - SIGNS / SYMPTOMS / LABS -Ascending colitis, likely infectious-Family medicine progress note, 07/16, Fran Morton MD - At the time a bacterial etiology is more likely, but given the lack of response to antibiotic inflammatory type process is starting to come up on the differential including inflammatory disease-Progress note, 07/15, Nimco Beavers MD - Right sided colitis with submucosal edema and hemorrhage-OP report, 07/16, Cindy Cuba MD - I suspect that she probably had salmonella-induced diarrhea and then dehydration with resultant right sided ischemic colitis-OP report, 07/16, Cindy Cuba MD RISK FACTORS -Chronic constipation-Consultation report, 07/13, Nimco Danielson MD TREATMENT: - Colonoscopy-OP report, 07/16, Cindy Cuba MD - Rocephin,IV- MAR, 07/14 (This form is maintained as a part of the permanent medical record) 2014 [employer]. All Rights Reserved [employer] Support Clerk Crystal Reports Winform ViewerJanet [email or web address]
== END 2019-07-16 18:28 | disposition home or self-care (01) | DRG 371 ==
LOC: ERS 19:03 → OBSVTOIN 21:57 → SURG B 21:57
PROVIDERS: ADMIT Emergency Medicine; ATTEND Emergency Medicine
PROC: 0DBH8ZX Excision of Cecum, Via Natural or Artificial Opening Endoscopic, Diagnostic (ICD-10-PCS; principal; 2019-07-16)
DX: A02.0 Salmonella enteritis (principal); K65.8 Other peritonitis; N39.0 Urinary tract infection, site not specified; E87.6 Hypokalemia; K37 Unspecified appendicitis; F17.210 Nicotine dependence, cigarettes, uncomplicated; K59.09 Other constipation; E86.0 Dehydration
CPT/HCPCS: 36415; 74177; 80048; 80053; 81003; 81015; 83605; 83630; 83690; 83735; 84145; 84703; 85025; 85652; 86038; 86140; 86225; 87040; 87045; 87046; 87077; 87081; 87086; 87186; 87324; 87328; 87329; 87427; 87430; 87449; 87491; 87591; 87804; 88305; 96361; 96365; 96375; J0696; J0744; J1885; J2270; J2405; J2543; J2704; J3480; J3490; J7120; Q9967; S0028

== ENCOUNTER 2020-02-11 14:41 | Emergency (ER) | payer SELFPAY ==
[2020-02-11 15:12] LABS: #Eosinphils 0.1 thou/uL (0.0-0.7); #Lymphocytes 1.7 thou/uL (1.20-3.40); #Monocytes 0.3 thou/uL (0.11-0.59); %Basophils 0.4 % (0.0-1.0); %Eosinophils 1.5 % (0.0-10.0); %Lymphocytes 27.2 % (21.0-51.0); %Monocytes 5.5 % (0.0-10.0); %Neutrophils 65.4 % (42.0-75.0); Hemoglobin 13.7 g/dL (12.0-16.0); Mean Corpuscular HGB CONC 34.1 g/dL (32.0-36.0); Mean Corpuscular Hemoglobin 32.3 pg (27.0-31.0); Mean Corpuscular Volume 94.7 fL (78.0-98.0); Mean Platelet Volume 8.3 fL (7.4-10.4); Platelet Count 246 thou/uL (130-400); Red Blood Cell (RBC) Count 4.24 mill/uL (4.20-5.40); White Blood Cell (WBC) Count 6.1 thou/uL (4.8-10.8)
[2020-02-11 15:34] LABS: Acetaminophen Less than 6.0 mcg/mL (10.0-30.0); Alcohol Less than 10 mg/dL (Less than 10); Salicylate Less than 8.0 mg/dL (15.0-30.0)
[2020-02-11 15:36] LABS: ALT (SGPT) 12 U/L (8-55); AST (SGOT) 16 U/L (5-34); Albumin 4.1 g/dL (3.5-5.0); Alcohol Less than 10 mg/dL (Less than 10); Alkaline Phosphatase 61 U/L (40-110); Anion Gap 13 mmol/L (10-20); BUN (Urea Nitrogen) 15 mg/dL (7.0-18.7); Bilirubin, Total 0.5 mg/dL (0.2-1.2); Calc. Creatinine Clearance 0 mL/min (70-130); Carbon Dioxide 21 mmol/L (22-29); Chloride 106 mmol/L (98-107); Estimated GFR-MDRD 88; Globulin 3.5 g/dL (2.4-3.5); Glucose 120 mg/dL (70-105); Potassium 3.6 mmol/L (3.5-5.1); Protein, Total 7.6 g/dL (6.0-8.3); Sodium 136 mmol/L (136-145)
[2020-02-11 15:39] LABS: Bacteria/HPF None Seen HPF (None Seen); Bilirubin Negative (Negative); Blood, Urine Negative (Negative); Clarity Clear (Clear); Glucose, Urine (Dipstick) Normal (Negative); Ketone, Urine Negative (Negative); Leukocyte Negative Leu/uL (Negative); Mucous/LPF 1+ LPF (<2+); Nitrite Negative (Negative); Protein, Urine (Dipstick) 30 mg/dL (Neg-Trace); RBC/HPF 0-3 HPF (0-3); Specific Gravity, Urine 1.035 (1.002-1.036); Urobilinogen Normal mg/dL (Less than 2); WBC/HPF 0-3 HPF (0-3)
[2020-02-11 15:40] LABS: Pregnancy Test - Urine (BHCG) Negative (Negative); Pregu Control Background? CLEAR/WHITE (CLR/WHITE); Pregu Control Bar Appear? YES (CONTROL BAR); Specific Gravity 1.035 (1.002-1.036)
[2020-02-11 15:42] LABS: Amphetamine Not Detected (NotDetected); Barbiturates Screen Not Detected (NotDetected); Benzodiazepine Screen Not Detected (NotDetected); Cocaine Metabolite Screen Detected (NotDetected); Medtox Control Line Valid? VALID (VALID); Medtox Reader # READER 1; Methadone Not Detected (NotDetected); Methamphetamine Not Detected (NotDetected); Opiate Screen Not Detected (NotDetected); Oxycodone Screen Not Detected (NotDetected); Phencyclidine (PCP) Not Detected (NotDetected); THC/Cannabinoid Screen Detected (NotDetected); Tricyclic Screen Not Detected (NotDetected)
== END 2020-02-12 03:34 ==
LOC: ERS 14:41
DX: R45.851 Suicidal ideations (principal); F17.210 Nicotine dependence, cigarettes, uncomplicated
CPT/HCPCS: 80053; 80306; 80307; 81003; 81015; 81025; 84443; 85025; 99285

== ENCOUNTER 2020-05-02 02:27 | Emergency (ER) | payer SELFPAY ==
[2020-05-02] MEDS ORDERED: Bacitracin 1 PK ONE (04:26)
== END 2020-05-02 04:54 | disposition home or self-care (01) ==
LOC: ERS 02:27
DX: L03.011 Cellulitis of right finger (principal); F17.210 Nicotine dependence, cigarettes, uncomplicated
CPT/HCPCS: 26010